=== PATIENT | female | born 1975 | race Caucasian/White ===

== ENCOUNTER → 2017-05-27 | Outpatient (CLI) | payer OTHER ==
[~2017-05-27] MED LIST: ATIVAN1 MG PO; CILOXAN 5 ML5 M1 OT; COZAAR25 MG PO; FLEXERIL10 MG PO; HYDROCODONE BIT1 T11 PO; IBU-8800 MG PO; IRON325 M1 PO; KLONOPIN0.5 MG PO; MELATONIN5 M7 PO; NORCO 325 MG-51 TAB PO; NORFLEX100 MG PO; NUCYNTA75 MG PO; PREDNICOT20 MG PO; TRAMADOL HYDRO100 MG PO; VICODIN 5/500 505 MG PO
[2017-05-27 09:34] LABS: CREATININE 0.77 mg/dL (0.55-1.02)
== END | disposition home or self-care (01) ==
LOC: LAB 08:41
PROVIDERS: Internal Medicine
DX: R06.02 Shortness of breath (principal)

== ENCOUNTER → 2017-05-28 | Outpatient (CLI) | payer OTHER ==
--- NOTE | ~2017-05-28 | PF ---
[place], [place] PULMONARY FUNCTION TEST [id number] UN[facility] #: [id number] ROOM: DOCTOR: KRIS RANGEL MD,ALEKSEY BIRTHDATE: [birth year] DOS: 05/28/2017 ORDERED BY: Dr. Tamiko Moe. HISTORY: The patient recorded 42-year-old female, height of 68 inches, weight of 260 pounds, BMI 39.5. The patient was reported with symptoms of shortness of breath. There were no past tobacco use. SPIROMETRY: The FVC were recorded 4.90 liters, 170% predicted value normal. The FEV1 was noted 3.78 liters at 112% of predicted value. The ratio of FEV1/FVC recorded 77%. Post-bronchodilator, no changes occurred. Flow volume loop was noted normal. LUNG VOLUMES: The spirometry was noted normal. Thoracic gas volume recorded as 64%, residual volume of 78%, total lung capacity 109%. Lung volumes were noted normal. The patient's lung diffusion noted normal 100%. The patient's resistance passive conductance noted normal. FINAL IMPRESSION: The current pulmonary function tests were noted normal at this time. Clinical correlation would be advised. ALEKSEY PONCE MD CM:PFREPORT:PULMONARY FUNCTION TEST [id number] ALEKSEY RANGEL MD
== END | disposition home or self-care (01) ==
LOC: CT 05-21 09:00
DX: R06.02 Shortness of breath (principal); R05 Cough; R09.89 Other specified symptoms and signs involving the circulatory and respiratory systems

== ENCOUNTER 2018-04-22 14:14 | Emergency (ER) | payer OTHER ==
[~2018-04-22] VITALS: Ht 172.7 cm; Wt 131.5 kg
[2018-04-22 14:41] LABS: BASO # 0.1 10*3/uL (0.0-0.1); BASO % 0.7 % (0.0-1.0); EOS # 0.2 10*3/uL (0.0-0.4); EOS % 2.9 % (1.0-4.0); HEMATOCRIT 37.9 % (37.0-47.0); HEMOGLOBIN 12.6 g/dl (12.0-16.0); LYMPH # 1.3 10*3/uL (1.3-4.4); LYMPH % 19.6 % (27.0-41.0); MEAN CORPUSCULAR HGB 27.3 pg (27.0-31.0); MEAN CORPUSCULAR HGB CONC 33.2 g/dl (33.0-37.0); MEAN PLATELET VOLUME 8.9 fl (9.6-12.3); MONO # 0.4 10*3/uL (0.1-1.0); MONO % 5.5 % (3.0-9.0); NEUT # 4.9 10*3/uL (2.3-7.9); PLATELET COUNT AUTOMATED 244 10*3/uL (130-400); RED BLOOD COUNT 4.62 10*6/uL (4.10-5.10); WHITE BLOOD COUNT 6.9 10*3/uL (4.8-10.8)
[2018-04-22 14:50] LABS: ACT PARTIAL THROMBO TIME 25.5 SECONDS (20.8-31.5); INTERNATIONAL NORM RATIO 0.9 (2.0-3.5)
[2018-04-22 14:56] LABS: ALBUMIN 3.6 gm/dl (3.1-4.5); ALKALINE PHOSPHATASE 95 U/L (45-117); BUN 14 mg/dl (7-24); CHLORIDE 104 mmol/L (98-107); POTASSIUM 3.9 mmol/L (3.5-5.1); SGOT/AST 14 IU/L (3-35); SGPT/ALT 18 U/L (12-78); SODIUM 136 mmol/L (136-145); TOTAL PROTEIN 7.4 gm/dL (6.4-8.2)
== END 2018-04-22 15:55 | disposition home or self-care (01) ==
LOC: ED 14:14
PROVIDERS: Nurse Practitioner Family
DX: R04.0 Epistaxis (principal); R03.0 Elevated blood-pressure reading, without diagnosis of hypertension; Z88.5 Allergy status to narcotic agent; Z79.899 Other long term (current) drug therapy

== ENCOUNTER → 2019-01-11 | Outpatient (CLI) | payer OTHER | END | disposition home or self-care (01) | LOC: CT 01:49 | DX: K76.0 Fatty (change of) liver, not elsewhere classified (principal); K57.30 Diverticulosis of large intestine without perforation or abscess without bleeding; N83.202 Unspecified ovarian cyst, left side; R16.1 Splenomegaly, not elsewhere classified; K43.9 Ventral hernia without obstruction or gangrene; Z90.710 Acquired absence of both cervix and uterus; Z90.49 Acquired absence of other specified parts of digestive tract ==

== ENCOUNTER → 2020-07-17 | Outpatient (CLI) | payer OTHER ==
[2020-07-17 14:41] LABS: BASO # 0.1 10*3/uL (0.0-0.1); BASO % 0.9 % (0.0-1.0); EOS # 0.2 10*3/uL (0.0-0.4); EOS % 2.2 % (1.0-4.0); HEMATOCRIT 38.7 % (37.0-47.0); LYMPH # 1.8 10*3/uL (1.3-4.4); LYMPH % 25.7 % (27.0-41.0); MEAN CORPUSCULAR HGB 27.5 pg (27.0-31.0); MEAN CORPUSCULAR HGB CONC 33.1 g/dl (33.0-37.0); MEAN PLATELET VOLUME 10.2 fl (9.6-12.3); MONO # 0.4 10*3/uL (0.1-1.0); NEUT # 4.4 10*3/uL (2.3-7.9); NEUT % 64.9 % (47.0-73.0); PLATELET COUNT AUTOMATED 245 10*3/uL (130-400); RED BLOOD COUNT 4.66 10*6/uL (4.10-5.10); RED CELL DISTRI WIDTH 14.7 % (0-14.5); WHITE BLOOD COUNT 6.8 10*3/uL (4.8-10.8)
[2020-07-17 15:06] LABS: ALBUMIN 3.5 gm/dl (3.1-4.5); ALKALINE PHOSPHATASE 82 U/L (45-117); BUN 9 mg/dl (7-24); CHLORIDE 99 mmol/L (98-107); CHOLESTEROL 156 mg/dL (<200); CREATININE 0.85 mg/dL (0.55-1.02); FREE T4 1.48 ng/dl (0.76-1.46); HDL CHOLESTEROL 68 mg/dl (40-60); LDL CHOLESTEROL 63 mg/dL (9-159); SGOT/AST 17 IU/L (3-35); SGPT/ALT 19 U/L (12-78); SODIUM 136 mmol/L (136-145); TOTAL PROTEIN 7.4 gm/dL (6.4-8.2); TRIGLYCERIDES 124 mg/dl (<150); VLDL CHOLESTEROL 25 mg/dL (6-40)
[2020-07-17 15:30] LABS: VITAMIN D, 25-HYDROXY 38.4 ng/mL (30-100)
== END | disposition home or self-care (01) ==
LOC: LAB 13:33
PROVIDERS: ATTEND Internal Medicine
DX: Z00.00 Encounter for general adult medical examination without abnormal findings (principal); I10 Essential (primary) hypertension; E55.9 Vitamin D deficiency, unspecified; Z13.220 Encounter for screening for lipoid disorders; Z13.21 Encounter for screening for nutritional disorder; Z13.1 Encounter for screening for diabetes mellitus

== ENCOUNTER 2022-12-22 12:06 | Emergency (ER) | payer OTHER ==
[~2022-12-22] VITALS: Ht 172.7 cm; Wt 117.9 kg
[2022-12-22] MEDS ORDERED: HYDR25T PO (12:18)
[2022-12-22] MEDS ORDERED: BUSPIRONE15 MG PO (12:18)
[2022-12-22] MEDS ORDERED: WELLBUTRIN XL300 MG PO (12:18)
== END 2022-12-22 14:45 | disposition home or self-care (01) ==
LOC: ED 12:06
DX: S80.11XA Contusion of right lower leg, initial encounter (principal); F41.9 Anxiety disorder, unspecified; F32.A Depression, unspecified; I10 Essential (primary) hypertension; Z88.5 Allergy status to narcotic agent; Z98.890 Other specified postprocedural states; Z90.49 Acquired absence of other specified parts of digestive tract; Z90.710 Acquired absence of both cervix and uterus; W22.03XA Walked into furniture, initial encounter; Y93.89 Activity, other specified; Y92.89 Other specified places as the place of occurrence of the external cause; Y99.8 Other external cause status

== ENCOUNTER 2022-12-31 18:05 | Emergency (ER) | payer OTHER ==
[~2022-12-31] VITALS: Ht 172.7 cm; Wt 117.9 kg
[~2022-12-31 18:05] MED LIST changes: +BUSPIRONE15 MG PO; +HYDR25T PO; +WELLBUTRIN XL300 MG PO
[2023-01-01] MEDS ORDERED: PERCOCET 5-3251 EACH PO (08:46)
== END 2023-01-01 08:49 | disposition home or self-care (01) ==
LOC: ED 18:05
DX: S80.11XA Contusion of right lower leg, initial encounter (principal); S90.31XA Contusion of right foot, initial encounter; Z88.5 Allergy status to narcotic agent; Z79.899 Other long term (current) drug therapy; Z90.711 Acquired absence of uterus with remaining cervical stump; Z87.42 Personal history of other diseases of the female genital tract; W22.8XXA Striking against or struck by other objects, initial encounter; Y93.89 Activity, other specified; Y92.89 Other specified places as the place of occurrence of the external cause; Y99.8 Other external cause status

== ENCOUNTER → 2025-03-16 | Outpatient (CLI) | payer OTHER ==
[~2025-03-16] MED LIST changes: +PERCOCET 5-3251 EACH PO
== END | disposition home or self-care (01) ==
LOC: LAB 07:44
PROVIDERS: ATTEND Internal Medicine
DX: E11.9 Type 2 diabetes mellitus without complications (principal)